=== PATIENT | female | born 1995 | race Two or more races ===

== ENCOUNTER 2018-09-17 12:22 | Emergency (ER) | payer OTHER ==
[~2018-09-17] VITALS: Ht 162.6 cm; Wt 61.2 kg
--- NOTE | 2018-09-17 12:31 | NUR ---
PATIENT WAS MSE BY DR SALDANA.
--- NOTE | 2018-09-17 13:04 | NUR ---
Patient discharged to home in stable conditon. Written and verbal after care instructions given. Patient verbalizes understanding of instructions.
--- NOTE | 2018-09-17 13:05 | NUR ---
DR SALDANA MADE PATIENT AWARE OF TEST RESULTS [facility].
[2018-09-17 13:07] VITALS: BP 115/71
== END 2018-09-17 13:11 | disposition home or self-care (01) ==
LOC: ER 12:25
DX: S60.221A Contusion of right hand, initial encounter (principal); W22.8XXA Striking against or struck by other objects, initial encounter; Y93.89 Activity, other specified; Y92.89 Other specified places as the place of occurrence of the external cause; Y99.8 Other external cause status
CPT/HCPCS: 73130; A4663